=== PATIENT | male | born 1955 | race Two or more races ===

== ENCOUNTER 2025-03-26 11:14 | Inpatient (IN) ==
--- NOTE | 2025-03-25 08:35 | Anesthesiology Consultation ---
Date of Service March 25, 2025 Assessment & Plan (1) Encounter for pre-operative examination: - Infectious disease screening: Per assessment on 03/17/25- No known recent infectious disease contacts or current infectious disease symptoms. - Hx bradycardia: Preop EKG performed 03/25/25 notes Marking SB at 38bpm. Comparison EKG from 12/30/20 was SB at 41bpm. Spoke with patient via phone- he states that he has "always" had low HR. Denies cardiopulmonary limiting c omplaints with daily activities. Chart review notes baseline HR in the 40-50s over past several years. Case reviewed with Dr. Sheppard- he feels patient okay to remain as scheduled for given surgery. Ultimate decision to proceed at anesthesiologist discretion DOS after patient evaluation. Chart Review Chart Review: Patient NOT seen in Pre Admission Testing History Surgery Operation Date: 03/26/25 12:35 Proposed Procedures p Transurethral Resection of Prostate - Nick Roberts MD Height/Weight Height: 5 ft 6 in Weight: 61.235 kg Allergies Allergy/AdvReac Type Severity Reaction Status Date / Time clindamycin Allergy Mild Rash Verified 03/17/25 07:33 Penicillins Allergy Mild Rash Verified 03/17/25 07:33 Clarithromycin Allergy Mild Rash Uncoded 03/17/25 07:33 Medications Home Medications Medication Instructions Recorded Confirmed Last Taken acetaminophen 650 mg 1,300 mg (2 x 650 mg) PO Q12H PRN 05/14/24 03/17/25 Unknown tablet,extended release (Tylenol pain #120 tabs Arthritis Pain) diclofenac sodium 1 % topical gel 2 g topical QID #100 grams 05/14/24 03/17/25 Unknown (Voltaren Arthritis Pain) doxazosin 4 mg tablet See Rx Instructions .Route 05/14/24 03/17/25 Unknown .COMPLEX #90 tabs finasteride 5 mg tablet See Rx Instructions .Route 02/19/25 03/17/25 Unknown .COMPLEX #90 tabs Past Medical History Medical History (Updated 03/25/25 @ 08:35 by Shwetha Shafer) Anemia BPH (benign prostatic hyperplasia) History of stomach cancer 1996 Dmitry-en-Y Gastric bypass 20+ years ago > surgery/chemo/radiation Past Family History Family History (Updated 03/17/25 @ 07:41 by Ruby Jaramillo RN) Other No family history of adverse response to anesthesia Denies family history of Alzheimer disease Dementia Breast cancer Colorectal cancer Past Surgical History Surgical History (Updated 03/24/25 @ 21:52 by Shwetha Shafer) H/O prostate biopsy History of colonoscopy History of cystoscopy History of esophagogastroduodenoscopy (EGD) History of gastrectomy History of tooth extraction Hx of prostate biopsy Social History Smoking Status: Never smoker Hx Alcohol Use: No Hx Substance Use: No Testing Laboratory Results 03/24/25 WBC 4.27 H/H 13.6/42.2 PLATELETS 172 SODIUM 140 POTASSIUM 4.7 CHLORIDE 104 CO2 27 BUN 17 CREATININE 1.2 GLUCOSE 72 Electrocardiogram Date: 03/24/25 Marked sinus bradycardia at 38bpm.
--- NOTE | 2025-03-26 12:17 | History & Physical Report ---
Date of Service March 26, 2025 Assessment & Plan (1) BPH NOS w ur obs/LUTS: Plan: We reviewed the plan for transurethral resection of the prostate. We reviewed risks and benefits of surgery. He expressed understanding and would like to proceed with surgery. History of Present Illness Primary Care Provider: Bo Ashby MD This is a 70-year-old male followed by urology for BPH. Recent cystoscopy identified enlarged prostate. He presents to the OR for transurethral resection of the prostate. He denies any changes in his health. Recent urine culture did not demonstrate any infection. Allergies Allergy/AdvReac Type Severity Reaction Status Date / Time clindamycin Allergy Mild Rash Verified 03/26/25 11:30 Penicillins Allergy Mild Rash Verified 03/26/25 11:30 Clarithromycin Allergy Mild Rash Uncoded 03/26/25 11:30 Home Medications Medication Instructions Recorded Confirmed Type acetaminophen 650 mg 1,300 mg (2 x 650 mg) PO Q12H PRN 05/14/24 03/26/25 Rx tablet,extended release (Tylenol pain #120 tabs Arthritis Pain) diclofenac sodium 1 % topical gel 2 g topical QID #100 grams 05/14/24 03/26/25 Rx (Voltaren Arthritis Pain) doxazosin 4 mg tablet See Rx Instructions .Route 05/14/24 03/26/25 Rx .COMPLEX #90 tabs finasteride 5 mg tablet See Rx Instructions .Route 02/19/25 03/26/25 Rx .COMPLEX #90 tabs Past Med/Surg History Problem List Encounter for pre-operative examination Abnormal ejaculation Bilateral knee pain Vitamin B12 deficiency Elevated PSA BPH NOS w ur obs/LUTS Medical History Anemia BPH (benign prostatic hyperplasia) History of stomach cancer 1996 Dmitry-en-Y Gastric bypass 20+ years ago > surgery/chemo/radiation Surgical History History of gastrectomy H/O prostate biopsy Hx of prostate biopsy History of cystoscopy History of esophagogastroduodenoscopy (EGD) History of colonoscopy History of tooth extraction Family History (Updated 03/17/25 @ 07:41 by Ruby Jaramillo RN) Other No family history of adverse response to anesthesia Denies family history of Alzheimer disease Dementia Breast cancer Colorectal cancer Social History Smoking Status: Never smoker Second Hand Exposure: No; Hx Alcohol Use: No Hx Substance Use: No Preferred Language: Khmer Visual Impairment: No Limitations Hearing Ability: Normal 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 Feels Safe at Home: Yes Safety Concerns: Feels Safe At This Time Diet: regular Dental Care, Regularly: No Seatbelt Use: always Assistive Devices: Denture - Upper and Denture - Lower Review of Systems 10 point review of systems negative except for otherwise indicated. Physical Exam Constitutional: well developed and well nourished; no acute distress Eyes: + anicteric sclerae; pupils not irregula r Respiratory: normal respiratory effort; no respiratory distress, does not use accessory muscles and no cough Cardiovascular: well perfused Gastrointestinal (Abdomen): Inspection/Auscultation: abdomen normal to inspection; abdomen not distended Musculoskeletal: Extremities: extremities normal to inspection Skin: normal turgor; no rashes and no lesions Neurologic: moves all extremities and awake Psychiatric: Orientation: alert and oriented x 3 Results & Data Vital Signs (Past 12 Hours) Vital Signs Temp Pulse Resp BP Pulse Ox O2 Del Method 03/26/25 11:35 36.7 C 46 L 18 151/74 H 99 Room Air
--- NOTE | 2025-03-26 13:59 | Operative Report ---
PG Post Operative Report Pre & Post Diagnosis Operation Date: 03/26/25 11:55 Preoperative diagnosis: BPH Postoperative diagnosis: BPH I identified the patient and participated in the time-out.: Yes Procedure Operation Date: 03/26/25 11:55 Transurethral resection of the prostate Surgeon Nick Roberts MD Closed Circuit Screen Watcher None Estimated Blood Loss 10 Findings Consistent with Post-Op Diagnosis Specimens Prostate chips Drains 22 Bangladeshi three-way Rosen catheter per urethra, 10 cc in balloon, CBI running Anesthesia Type General Complications none Disposition Accompanied Patient To Recovery: Yes Disposition: Recovery Room Indications This is a 70-year-old male followed by urology for BPH and lower urinary tract symptoms. Recent cystoscopy identified lobe of prostate tissue that may be causing obstruction. He presents to the OR for transurethral resection of the prostate. Description of Procedure The patient was identified in the holding area and informed consent was confirmed. He was taken to the operating room where general anesthesia was initiated. He was placed in the dorsal lithotomy position with all pressure points appropriately padded. He was prepped and draped in the usual sterile fashion and a preoperative timeout was performed. A well-lubricated resectoscope was inserted per urethra and panendoscopy was performed. Pendulous urethra was normal. He had prominent growth of the right lobe of prostate tissue which seems to be obstructing the prostatic fossa and extending into the bladder. The bipolar loop was introduced and used to resect this lobe of tissue on the right side. Once it was removed, the prostate fossa was actually fairly open. There was minimal growth of the left side or of the median lobe. I resected a small amount of the median prostatic tissue. Since there was not much growth of the left side I left it alone. Meticulous hemostasis was obtained. The prostate chips were evacuated from the bladder and sent for pathologic analysis. A final inspection demonstrated no injury to the ureteral orifices or the sphincter, no remaining prostate chips, and good hemostasis at low pressure. A 22 Fr 3-way rosen catheter was placed. The balloon was inflated with 20 mL of normal saline and the catheter was attached to gravity drainage with continuous irrigation running. The patient was then awakened from anesthesia and was brought to the PACU in stable condition. I attest to the content of the Intraoperative Record and any orders documented therein. Any exceptions are noted below.
--- NOTE | 2025-03-26 15:10 | Anesthesiology Progress Note ---
Date of Service March 26, 2025 Anesthesia Post Procedure Vital Signs Vital Signs: Temp Pulse Pulse Resp BP Pulse Ox O2 Del Method 03/26/25 15:00 47 L 12 154/77 H 100 Room Air 03/26/25 14:50 53 L 15 166/84 H 100 Room Air 03/26/25 14:40 53 L 13 152/83 H 100 Room Air 03/26/25 14:30 54 L 15 152/84 H 100 Room Air 03/26/25 14:20 58 L 12 154/85 H 100 Nasal Cannula 03/26/25 14:10 63 19 153/84 H 100 Nasal Cannula 03/26/25 14:02 36.4 C L 64 13 174/90 H 100 Nasal Cannula 03/26/25 11:35 36.7 C 46 L 18 151/74 H 99 Room Air O2 Flow Rate 03/26/25 15:00 03/26/25 14:50 03/26/25 14:40 03/26/25 14:30 03/26/25 14:20 2 03/26/25 14:10 2 03/26/25 14:02 4 03/26/25 11:35 Pain Intensity Penis: Pain Intensity: 8 Transfer of Care Handoff Completed per policy Notes Mental Status: alert / awake / arousable and participated in evaluation Nausea / Vomiting: adequately controlled Pain: adequately controlled Airway Patency, RR, SpO2: stable & adequate BP & HR: stable & adequate Hydration State: stable & adequate Anesthetic Complications: no major complications apparent and Pt Satisfied with anesthetic care
--- NOTE | 2025-03-26 21:23 | Consultation ---
Date of Consultation March 26, 2025 Assessment & Plan (1) S/P TURP: TURP performed by Dr Roberts today, 03/26/25 - 2nd to BPH with LUTS surgery without any apparent complication defer all Rx/management to Dr Roberts & the urology team (2) BPH NOS w ur obs/LUTS: cont doxazosin cont finasteride rosen in place with CBI - defer management to urology (3) Sinus bradycardia: this is a long-standing, chronic problem dating back several years in fact a 2020 EKG showed sinus bradycardia with rate of ~40 he lives a very active lifestyle and is physically fit with no cardiopulmonary symptoms or limitations he denied any dizziness, syncope, presyncope, chest pain, etc. check TSH in am reasonable to check an echo to ensure normal LV function, etc. check K/mag in am no prior h/o Lyme disease - and I would not expect chronic sinus bradycardia to be due to such he is not on any AV hans agent that would cause bradycardia in light of prior gastrectomy for gastric cancer - could this have led to increased vagal tone leading to the bradycardia?? counseled him that as long as he has no symptoms from the bradycardia and as long as he has chronotropic response to activity that this is something that we can continue to monitor closely counseled him, however, that if the bradycardia worsens over time that this would be a sign of sinus node dysfunction which may lead to pacemaker placement some time down the line continue telemetry monitoring to exclude sinus pauses, AV block, etc. tomorrow would ambulate him in the hallway and if HRs rise with activity his HRs can simply be followed (4) Vitamin B12 deficiency: likely 2nd to prior gastrectomy has not had a level in a couple of years will recheck level tomorrow am (5) History of stomach cancer: s/p gastrectomy denies any bothersome GI symptoms (6) History of gastrectomy: Plan Thank you for this consult. Our team will follow with you. History of Present Illness Requesting Physician: Nick Roberts MD Reason for Consultation: bradycardia, post-op medical management Attending Physician: Nick Roberts MD History of Present Illness Pleasant 70yo male with h/o BPH with LUTS who presented today for elective TURP by Dr Nick Roberts, [facility]. In addition to BPH he has prior h/o gastric cancer s/p gastrectomy along with chemo/XRT. The gastric cancer was in the late . I saw the patient post-op on the telemetry floor. We were asked to comment on his sinus bradycardia. Before I visited with him he was in sinus bradycardia on the heart monitor with rate of ~35. A review of records shows an EKG dating back to 12/2020 that also showed severe sinus bradycardia with rate of ~40. During my assessment he was resting comfortably in bed watching TV. He was able to eat dinner tonight without nausea, emesis or abdominal pain. At home he is quite active. He cuts firewood and does a variety of strenuous activities without any limitation. Denies any syncope, presyncope, dizziness, chest pain, palpitations, or shortness of breath/EDWARDS. 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 Other than LUTS from his BPH his only other complaint is that of feeling cold on many days. Allergies Allergy/AdvReac Type Severity Reaction Status Date / Time clarithromycin Allergy Intermediate Rash Verified 03/26/25 17:31 clindamycin Allergy Mild Rash Verified 03/26/25 11:30 Penicillins Allergy Mild Rash Verified 03/26/25 11:30 Home Medications Medication Instructions Recorded Confirmed Type acetaminophen 650 mg 1,300 mg (2 x 650 mg) PO Q12H PRN 05/14/24 03/26/25 Rx tablet,extended release (Tylenol pain #120 tabs Arthritis Pain) diclofenac sodium 1 % topical gel 2 g topical QID #100 grams 05/14/24 03/26/25 Rx (Voltaren Arthritis Pain) doxazosin 4 mg tablet See Rx Instructions .Route 05/14/24 03/26/25 Rx .COMPLEX #90 tabs finasteride 5 mg tablet See Rx Instructions .Route 02/19/25 03/26/25 Rx .COMPLEX #90 tabs sulfamethoxazole 800 1 tab PO BID 5 days #10 tabs 03/26/25 Rx mg-trimethoprim 160 mg tablet (Bactrim DS) Patient History Medical History (Updated 03/26/25 @ 21:44 by Aly Benjamin MD) Sinus bradycardia Abnormal ejaculation Bilateral knee pain Vitamin B12 deficiency Elevated PSA BPH NOS w ur obs/LUTS Anemia History of stomach cancer 1996 Dmitry-en-Y Gastric bypass 20+ years ago > surgery/chemo/radiation Surgical History (Updated 03/26/25 @ 21:48 by Aly Benjamin MD) History of gastrectomy H/O prostate biopsy Hx of prostate biopsy History of cystoscopy History of esophagogastroduodenoscopy (EGD) History of colonoscopy History of tooth extraction Family History (Updated 03/26/25 @ 21:45 by Aly Benjamin MD) Other Adopted No family history of adverse response to anesthesia Denies family history of Prostate cancer Alzheimer disease Dementia Breast cancer Colorectal cancer Social History (Updated 03/27/25 @ 05:41 by Aly Benjamin MD) Smoking Status: Never smoker Second Hand Exposure: No; Hx Alcohol Use: No Hx Substance Use: No Preferred Language: Latvian Visual Impairment: No Limitations Hearing Ability: Normal Network Desktop Support Specialist Required: No Beliefs That Will Affect Care: None marital status: Current Living Situation: Alone Current Living Situation Comment: Lives in [place] current occupational status: employed 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 other: adopted; born in [place], immig[place] to [facility] [place] Feels Safe at Home: Yes Diet: regular Dental Care, Regularly: No Seatbelt Use: always Assistive Devices: Denture - Upper and Denture - Lower Review of Systems Review of Systems: gen - no fatigue, minimal amount of weight loss over long period of time; no acute weight loss; good appetite; no fevers eyes - no significant visual changes HENT - no recent URI symptoms, sore throat, ear pain CV - no chest pain, edema, orthopnea, palpitations neuro - no presyncope or syncope, no dizziness or lightheadedness pulm - no dyspnea or EDWARDS, no cough GI - no abd pain or N/V; recent stools at home wnl; no blood in stool - LUTS leading to his TURP today musculo - denies any significant joint pains endo - no diabetes; does endorse feeling cold/cold intolerance neuro - no headaches or focal motor weakness Physical Exam Physical Exam: gen - NAD, lying comfortably in bed watching TV eyes - PERRL mouth - MMM neck - no goiter, no lymph nodes heart - bradycardic, s1 s2, regular rhythm, no murmur lungs - CTA b/l abd - soft NT ND BS+, no HSM - rosen in place with CBI, mild gross hematuria ("cool aid" color) ext - no edema, pulses 2+ b/l neuro - strength 5/5 x 4 exts; DTRs 1+ b/l upper exts psych - a/o x 3 Results & Data Vital Signs (Past 12 Hours) Vital Signs Temp Pulse Pulse Resp BP Pulse Ox O2 Del Method 03/26/25 19:15 36.6 C 70 18 133/73 95 Room Air 03/26/25 17:28 36.4 C L 41 L 18 163/74 H 94 Room Air 03/26/25 16:45 45 L 15 156/72 H 100 Room Air 03/26/25 16:30 42 L 14 156/74 H 100 Room Air 03/26/25 16:15 48 L 14 149/92 H 100 Room Air 03/26/25 16:00 49 L 21 155/78 H 96 Room Air 03/26/25 15:45 43 L 13 140/71 100 Room Air 03/26/25 15:30 49 L 15 156/74 H 100 Room Air 03/26/25 15:20 44 L 12 143/77 H 100 Room Air 03/26/25 15:10 36.3 C L 46 L 13 149/76 H 100 Room Air 03/26/25 15:00 47 L 12 154/77 H 100 Room Air 03/26/25 14:50 53 L 15 166/84 H 100 Room Air 03/26/25 14:40 53 L 13 152/83 H 100 Room Air 03/26/25 14:30 54 L 15 152/84 H 100 Room Air 03/26/25 14:20 58 L 12 154/85 H 100 Nasal Cannula 03/26/25 14:10 63 19 153/84 H 100 Nasal Cannula 03/26/25 14:02 36.4 C L 64 13 174/90 H 100 Nasal Cannula 03/26/25 11:35 36.7 C 46 L 18 151/74 H 99 Room Air O2 Flow Rate 03/26/25 19:15 03/26/25 17:28 03/26/25 16:45 03/26/25 16:30 03/26/25 16:15 03/26/25 16:00 03/26/25 15:45 03/26/25 15:30 03/26/25 15:20 05/22/25 15:10 03/26/25 15:00 03/26/25 14:50 03/26/25 14:40 03/26/25 14:30 03/26/25 14:20 2 03/26/25 14:10 2 03/26/25 14:02 4 03/26/25 11:35 Diagnostic Findings 03/24/2025 - pre-op EKG with sinus bradycardia, rate of 30-35 12/2020 EKG - sinus bradycardia, rate of ~40 telemetry this evening - sinus rashad, rate of 35 PG Care Time/CCT Total # of Minutes Spent Total Time Spent with Patient: Total time spent is greater than 50% in coordination of care (as documented) at patient's floor/unit and/or counseling patient: Coding Level of Care Code 63778 INT INP/OBS CARE 2/55MIN Diagnoses S/P TURP Z90.79 BPH NOS w ur obs/LUTS N40.1 Sinus bradycardia R00.1 Vitamin B12 deficiency E53.8 History of stomach cancer Z85.028 History of gastrectomy Z90.3
[2025-03-27 06:28] LABS: Basophils # (auto) 0.02 K/uL (0.00-0.20); Basophils % (auto) 0.4 %; Eosinophils # (auto) 0.14 K/uL (0.00-0.50); Eosinophils % (auto) 2.9 %; Hemoglobin 11.8 g/dl (14.0-18.0); Immature Granulocytes # (auto) 0.01 K/uL (0.01-0.20); Immature Granulocytes % (auto) 0.2 %; Lymphocytes # (auto) 1.11 K/uL (1.20-3.40); Lymphocytes % (auto) 23.4 %; Mean Corpuscular Hemoglobin 31.7 pg (25.0-34.0); Mean Corpuscular Hgb Conc 32.8 g/dL (32.0-36.0); Mean Corpuscular Volume 96.8 fL (80.0-100.0); Mean Platelet Volume 10.2 fL (9.4-12.4); Monocytes # (auto) 0.28 K/uL (0.11-0.59); Monocytes % (auto) 5.9 %; Neutrophils # (auto) 3.19 K/uL (1.40-6.50); Neutrophils % (auto) 67.2 %; Platelet Count 129 K/uL (130-400); RDW Standard Deviation 42.4 fL (36.4-46.3); Red Blood Count 3.72 M/uL (4.70-6.10); White Blood Count 4.75 K/ul (4.8-10.8)
[2025-03-27 06:44] LABS: Calcium 8.3 mg/dl (8.6-10.3); Creatinine Clr Calc Pharmacy 47.9 ml/min; Potassium 4.8 mmol/L (3.5-5.1)
[2025-03-27 06:57] LABS: Thyroid Stimulating Hormone 1.825 uIu/ml (0.300-4.500)
[2025-03-27 07:30] VITALS: RESP 18
--- NOTE | 2025-03-27 09:28 | Urology Progress Note ---
Date of Service March 27, 2025 Assessment & Plan (1) S/P TURP: Plan: - Pt POD#1 s/p TURP with Dr. Roberts - Doing well, progressing as expected - Afebrile, lab work reviewed - creatinine 1.29, WBC 4.75, Hgb 11.8 - Tolerating PO diet - 3 way Lo catheter intact, patent and draining clear yellow urine with CBI currently clamped - CBI clamped @7:10, nursing aware - Maintain Lo catheter - Anticipate home with Lo catheter later today presuming urine appropriate and he continues to progress as expected - Due to bradycardia we will consult with medicine to make sure patients heart rate is appropriate prior to discharge - Expected clinical course reviewed, all questions answered - Will arrange outpatient follow-up with our service for voiding trial Admission and Anticipated Discharge Date Admission Date: March 26, 2025 Subjective Patient sitting in chair Resting comfortably Denies fevers, chills, nausea, vomiting Would like to be discharged No other acute urological concerns overnight Review of Systems Constitutional: as per Subjective / HPI Genitourinary: + as per Subjective / HPI Physical Exam Constitutional: well developed and well nourished; no acute distress Respiratory: normal respiratory effort and able to speak in complete sentences Musculoskeletal: Extremities: extremities normal to inspection Psychiatric: Orientation: alert and oriented x 3 Results & Data Vital Signs (Past 12 Hours) Vital Signs Temp Pulse Pulse Resp BP Pulse Ox O2 Del Method 03/27/25 07:58 40 L 03/27/25 07:30 36.8 C 47 L 18 95/56 L 99 Room Air 03/27/25 03:27 36.6 C 67 16 132/69 95 Room Air 03/26/25 23:14 36.5 C 66 18 130/74 95 Room Air 03/26/25 21:51 47 L PG Care Time/CCT Total # of Minutes Spent Total Time Spent with Patient: Total time spent is greater than 50% in coordination of care (as documented) at patient's floor/unit and/or counseling patient: Coding Level of Care Code 43197 SUB INP/OBS CARE 2/35MIN Diagnoses S/P TURP Z90.79
--- NOTE | 2025-03-27 11:11 | Hospitalist Progress Note ---
Date of Service March 27, 2025 Assessment & Plan (1) S/P TURP: (2) BPH NOS w ur obs/LUTS: (3) Sinus bradycardia: (4) Vitamin B12 deficiency: (5) History of stomach cancer: Plan Pleasant 70-year-old male with past medical history of BPH with LUTS, gastric cancer s/p gastrectomy and chemo/XRT, vitamin B12 deficiency, sinus bradycardia. He presented on 03/26/[address] Roberts. Hospital medicine was consulted for sinus bradycardia and medical management. #BPH with LUTS / S/p TURP TURP performed by Dr Roberts on 03/26/25 - 2nd to BPH with LUTS. Surgery without any apparent complication Continue doxazosin, finasteride Lo in place draining mild gross hematuria Defer all Rx/management to Dr Roberts & the urology team #Sinus bradycardia This is a long-standing, chronic issue dating back several years. EKG in 2020 showed sinus bradycardia with rate of ~40. He is not on any AV hans agent that would cause bradycardia He lives a very active lifestyle and is physically fit with no cardiopulmonary symptoms or limitations. He denies any symptoms associated with his bradycardia including dizziness, lightheadedness, chest pain, shortness of breath, palpitations, presyncope, syncope, etc. Electrolytes, TSH WNL. B12 quite low and should be replaced parenterally as an outpatient as below. He has no prior h/o Lyme disease - would not expect chronic sinus bradycardia to be due to such Echocardiogram with normal left ventricular systolic function, EF 55-60%, no regional wall motion abnormalities, mild concentric LVH, mild TR Heart rate increased appropriately to 70s80s with ambulation In light of prior gastrectomy for gastric cancer - could this have led to increased vagal tone leading to the bradycardia? Counseled him that if the bradycardia worsens over time that this would be a sign of sinus node dysfunction which may lead to pacemaker placement some time down the line #History of stomach cancer/vitamin B12 deficiency S/p gastrectomy 1990s Denies any bothersome GI symptoms B12 deficiency likely secondary to prior gastrectomylevel quite low at 187- recommend parenteral replacement of vitamin B12 with PCP office with injections once monthly after discharge Patient is medically stable for discharge from hospital medicine's perspective. Thank you for the interesting consult. We will sign off at this time. Please reach out with any additional questions or concerns. Admission and Anticipated Discharge Date Admission Date: March 26, 2025 Supervising Physician Co-Signing Physician Notes PA Supervision Note: I did not personally see or examine the patient today, but I verified all espinoza points of JOHN Aguirre's assessment and plan with the following exceptions/additions: None Subjective Patient seen and evaluated in bedside chair. He reports feeling well overall, he does report 5/10 pain, RN about 2 give him oxycodone. He walked the halls with his nursing attendant this morning and his heart rate increased to 70s80s with activity. He again denies any symptoms associated with his bradycardia including dizziness, shortness of breath, chest pain, palpitations, presyncope, syncope. We discussed his lab work being normal including electrolytes, vitamin B12, TSH. We also discussed the results of his echocardiogram being overall unremarkable. He reports the urology team is discharging him today. This is appropriate from hospital medicine's perspective. No additional complaints or concerns at this time. Physical Exam Physical Exam: General: No acute distress, nondiaphoretic, well-developed, well-nourished. Cardiac: Bradycardic rate and 40s50s, regular rhythm. No murmur. No peripheral edema. Pulm: Clear to auscultation bilaterally without wheezes, rales or rhonchi. Normal respiratory effort. 100% on room air. Abdominal: Soft, nontender, nondistended. Bowel sounds present. : Lo catheter in place with mild gross hematuria (dark pink) in bag. Neuro: A&O x3. No focal neurological deficits. Results & Data Results & Data Vital Signs (Past 12 Hours) Vital Signs Temp Pulse Pulse Resp BP Pulse Ox O2 Del Method 03/27/25 07:58 40 L 03/27/25 07:30 98.2 F 47 L 18 95/56 L 99 Room Air 03/27/25 03:27 97.9 F 67 16 132/69 95 Room Air 03/26/25 23:14 97.7 F 66 18 130/74 95 Room Air Laboratory Results Reviewed CBC with differential Reviewed BMP, chemistries Diagnostic Findings Reviewed echocardiogram PG Care Time/CCT Total # of Minutes Spent Total Time Spent with Patient: Total time spent is greater than 50% in coordination of care (as documented) at patient's floor/unit and/or counseling patient: Coding Level of Care Code 04137 SUB INP/OBS CARE 2/35MIN Diagnoses S/P TURP Z90.79 BPH NOS w ur obs/LUTS N40.1 Sinus bradycardia R00.1 Vitamin B12 deficiency E53.8 History of stomach cancer Z85.028
[2025-03-27 11:14] VITALS: PULSE 55; TEMP 97.5; O2SAT 100
--- NOTE | 2025-03-27 11:58 | XCELERA ---
[id number]
--- NOTE | 2025-03-27 12:26 | Discharge Summary ---
Date of Service March 27, 2025 Admission HPI Per Admitting Provider This is a 70-year-old male followed by urology for BPH. Recent cystoscopy identified enlarged prostate. He presented to the OR for transurethral resection of the prostate. He was admitted postoperatively due to ongoing hematuria for weaning CBI. Admission Exam Per Admitting Provider Constitutional: well developed and well nourished; no acute distress Eyes: + anicteric sclerae; pupils not irregula r Respiratory: normal respiratory effort; no respiratory distress, does not use accessory muscles and no cough Cardiovascular: well perfused Gastrointestinal (Abdomen): Inspection/Auscultation: abdomen normal to inspection; abdomen not distended Musculoskeletal: Extremities: extremities normal to inspection Skin: normal turgor; no rashes and no lesions Neurologic: moves all extremities and awake Psychiatric: Orientation: alert and oriented x 3 Principal Diagnosis BPH Discharge Exam Well-appearing, NAD Lo catheter in place draining clear light pink urine on slow drip CBI Discharge Data Allergies Allergy/AdvReac Type Severity Reaction Status Date / Time clarithromycin Allergy Intermediate Rash Verified 03/26/25 17:31 clindamycin Allergy Mild Rash Verified 03/26/25 11:30 Penicillins Allergy Mild Rash Verified 03/26/25 11:30 Consultations 03/26/25 17:27 Consult Hospitalist Routine Procedures Performed Operation Date: 03/26/25 11:55 Actual Procedures p Transurethral Resection of Prostate(Not Applicable) - Nick Roberts MD Hospital Course (1) S/P TURP: He underwent transurethral resection of the prostate on 03/26/2025. CBI was slowly weaned overnight. By 03/27, irrigation could be stopped and he was doing well. He was discharged in good condition. (2) Sinus bradycardia: He has a history of sinus bradycardia. This was evaluated by internal medicine. He underwent echocardiogram while inpatient. He was cleared for discharge. Total Time Total Time Spent Total Time Spent (In Minutes): 15 Discharge Plan Discharge Items Patient Disposition: Home - Self-Care Reason For Visit: BPG WITH LUTS Discharge Diagnosis: BPH Activity: Per Instructions section Lifting: Wait until after follow-up appointment Bathing: No limitations Sexual Activity: Wait until after follow-up appointment Exercise/Sports: Wait until after follow-up appointment Driving/Machine Use: No limitations Weightbearing: Full weightbearing Non-emergency contact: Primary Care Provider and Urologist Call non-emergency contact if: your pain is not controlled and your temperature is above 101 Follow-up/Referrals: Bo Ashby MD [Primary Care Provider] - Nick Roberts MD [Physician] - (The office will call you to schedule an appointment) Diet: Regular Addtl Attending Provider Instructions: The surgery you had was TURP (Trans-urethral resection of the prostate) Please take all medications as prescribed and keep all follow-ups as scheduled. Please call our office at [phone] with any questions, concerns or need to reschedule appointments for any reason. We are happy to assist you. Medications: -Please resume your normal medications as previously prescribed. -Take a stool softener such as colace or Miralax to keep your stool soft. The goal is one soft bowel movement daily. -For pain, it is ok to take tylenol. You can also try pyridium (also known as AZO). This can be gotten [id number]. It turns your urine a bright orange color. -You have been prescribed an antibiotic (Bactrim). Please take this twice daily for the next 5 days. Activity: -Avoid straining or bearing down for the next 1-2 weeks. This can cause or increase bleeding. Avoiding straining to have bowel movements. -If you notice blood in your urine, try to remain well-hydrated to keep the urine dilute. -For the next 2 weeks, avoid activities that put pressure on your perineum (area behind the scrotum), such as riding a bike. What to expect after your procedure: -If a catheter was left in place, we will have you come to the office in the next couple days to remove it. -You may notice some blood in your urine. As long as your catheter is draining, this is ok. -You may have increased urinary frequency and urgency; this should improve with time. -You may notice some urinary leaking, especially with coughing/sneezing/bearing down. This should improve with time. When to call [facility] at [phone]: Fever of 101F or higher Heavy bleeding Pain that is not controlled with medicine Uncontrolled vomiting Problems urinating or inability to urinate Our office will call to schedule an appointment for catheter removal. Pending Studies at Discharge: Yes Studies:: Pathology Stand-Alone Forms: My [facility] Medications and DC Order Prescriptions: New sulfamethoxazole-trimethoprim [Bactrim DS] 800-160 mg tablet 1 tab PO BID 5 Days Qty: 10 0RF Continued finasteride 5 mg tablet See Rx Instructions .ROUTE .COMPLEX Qty: 90 3RF Dose Instruction: TAKE ONE TABLET EVERY DAY Patient Comments: hs Rx Instructions: TAKE ONE TABLET EVERY DAY acetaminophen [Tylenol Arthritis Pain] 650 mg tablet extended release 1,300 mg PO Q12H PRN (Reason: pain) Qty: 120 3RF diclofenac sodium [Voltaren Arthritis Pain] 1 % gel 2 g topical QID Qty: 100 4RF Patient Comments: uses prn pain Rx Instructions: apply to single knees bilaterally doxazosin 4 mg tablet See Rx Instructions .ROUTE .COMPLEX Qty: 90 3RF Rx Instructions: 1 po at HS; Discharge Orders: Discharge Order (Routine); Ordered 03/27/25 Ordered By: Miranda Diaz Admission Data Admit Date/Time: 03/26/25 15:43 Attending Provider: Nick Roberts Admit Provider: Nick Roberts Primary Care Provider: Bo Ashby Other Providers: Sivan Wagner Coding Level of Care Code 27862 IN/OBS DISCH 30 MIN/LESS Diagnoses S/P TURP Z90.79 Sinus bradycardia R00.1
[2025-03-27 12:34] VITALS: BP 95/56
--- NOTE | 2025-03-28 06:24 | Coding Query ---
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 Please assist us with the question(s) below: Coding Question(s): There is documentation, as on the H&P and on the 03/26 Consultation of, BPH NOS w ur obs/LUTS, and the Operative Report documents, "This is a 70-year-old male followed by urology for BPH and lower urinary tract symptoms. Recent cystoscopy identified lobe of prostate tissue that may be causing obstruction". The meaning of "ur obs" is not clear as it is not a valid abbreviation. Please clarify below, in your clinical opinion, the meaning of "ur obs": ( ) The meaning of ur obs is urinary obstruction ( ) The meaning of ur obs is not known Physician's Response(s): Thank you Hanna Johnson Principal Diagnosis: "that condition established after study, to be chiefly responsible for occasioning the admission of the patient to the hospital for care." Co-Existing Principal Diagnosis: "when two or more diagnoses equally meet the criteria for principal diagnosis as determined by the circumstances of admission, diagnostic work up, and/or therapy provided, and the Alphabetic Index, Tabular List, or another coding guideline does not provide sequencing direction, any one of the diagnoses may be sequenced first." "When the physician has documented what appears to be a current diagnosis in the body of the record, but has not included the diagnosis in the final diagnostic statement, the physician should be asked whether the diagnosis should be added." (Source Coding Clinic 2 QTR90. p3-4) AUBREY
== END 2025-03-27 14:42 | disposition home or self-care (01) ==
LOC: ASU 11:14 → 2N 15:43